=== PATIENT | male | born 1950 | race Caucasian/White ===

== ENCOUNTER → 2018-08-17 | Outpatient (CLI) | payer MEDICARE, OTHER ==
--- NOTE | 2018-08-21 10:08 | SLEEPCENT ---
DATE OF STUDY: 08/17/2018 ORDERED BY: LIZ Mooney Nocturnal polysomnography was performed for evaluation of sleep physiology in this patient with a history of snoring, comorbidities of hypertension and atrial fibrillation post ablation. 7 hours and 54 minutes of data were reviewed. They are 347 minutes of sleep identified. Sleep latency was prolonged at 58 minutes. REM latency was mildly prolonged at 104 minutes. Sleep architecture was fair with periods of wake resulting in reduced sleep efficiency of 74.1%. The patient's electrocardiogram showed a sinus rhythm with an average heart rate of 60 beats per minute. Premature atrial contractions were seen around obstructive respiratory events. The heart rate range was 50 to 90 beats per minute. EEG showed fairly normal waveforms for awake and sleep stages. There were 61 respiratory events identified of 10 seconds in duration or greater for an apnea-hypopnea index of 10.5. The events were primarily obstructive not exclusive to sleep stage nor body posture. Arousals from respiratory events occurred 4.7 times per hour, minimal oxygen desaturations were seen with significant activity noted in the limb leads with four trains of 30 events and a limb movement arousal index of 10. IMPRESSIONS: 1. Obstructive sleep apnea syndrome (G47.33). Apnea-hypopnea index 10.5. 2. Periodic limb movement disorder (G47.61). Limb movement arousal index 10. RECOMMENDATION: The patient should be encouraged to return to sleep disorder center for pressure therapy. In the interim, alcohol and sedative avoidance should be practiced and caution exercised during operation of motor vehicles. Pending response to pressure therapy interventions to reduce the frequency of arousal from limb activity may also be helpful. cc: Brigido Reddy MD
== END ==
LOC: M SLEEP 19:30
PROVIDERS: ATTEND Nurse Practitioner Family
DX: G47.33 Obstructive sleep apnea (adult) (pediatric) (principal); G47.61 Periodic limb movement disorder

== ENCOUNTER → 2018-09-18 | Outpatient (CLI) | payer MEDICARE, OTHER ==
--- NOTE | 2018-09-22 21:03 | SLEEPCENT ---
DATE OF PROCEDURE: 09/18/2018 ORDERED BY: Maisha Betancourt Nocturnal polysomnography was performed for the titration of pressure therapy in this patient with obstructive sleep apnea syndrome. Apnea-hypopnea index of 10.5. For testing, the patient was fit with a [employer] SoftEdge FX standard size mask. 4 cm of water pressure were applied to the circuit and the lights were extinguished. 7 hours and 58 minutes of data were reviewed. There were 343 minutes of sleep identified. Sleep latency was mildly prolonged at 27 minutes. Rapid eye movement (REM) latency likewise at 100 minutes. Sleep architecture remained somewhat fragmented in the midportion of the study. There were two REM cycles noted. Overall sleep efficiency was 72.7%. Electrocardiogram showed a sinus rhythm with an average heart rate of 60 beats minute. EEG showed normal waveforms for awake and sleep. Respiratory events were fully palliated with continuous positive airway pressure (CPAP) at a pressure of +6. Limb movements persisted during this test with the four trains of 30 events. Limb movement arousal index was 19.8. IMPRESSION: 1. Obstructive sleep apnea syndrome (G47.33). 2. Periodic limb movement disorder (G47.61). RECOMMENDATIONS: Nightly use of pressure therapy at 6 cm of water should be sufficient to address the patient's obstructive respiratory events. Should sleep symptoms persist, interventions to reduce the frequency of arousals from limb activity may be helpful.
== END ==
LOC: M SLEEP 19:33
PROVIDERS: ATTEND Nurse Practitioner Family
DX: G47.33 Obstructive sleep apnea (adult) (pediatric) (principal); G47.61 Periodic limb movement disorder

== ENCOUNTER → 2022-04-24 | Outpatient (CLI) | payer MEDICARE, OTHER ==
[~2022-04-24] MED LIST: ATOR1TAB21 PO; BIOFTAB PO; CALC600T61 PO; CHLO50TA PO; CVS500TA35 PO; D-3-50003 PO; ELIQ5TAB PO; FAMO40TA3 PO; POTA-136 PO; SOTA80TA32 PO
== END ==
LOC: M LABSMTC 10:50
PROVIDERS: ATTEND Anesthesiology
DX: Z01.812 Encounter for preprocedural laboratory examination (principal); Z11.52 Encounter for screening for COVID-19

== ENCOUNTER 2022-04-29 06:27 | Day surgery (SDC) | payer MEDICARE ==
[~2022-04-29] VITALS: Ht 170.2 cm; Wt 85.7 kg
[~2022-04-29 06:27] MED LIST changes: +NS 1,000 ML IV ONE
[2022-04-29] MEDS ORDERED: propofoL 500 MG/50 ML VIAL As Ordered ONE (07:41)
[2022-04-29] MEDS ORDERED: LIDOCAINE 2% 100MG/5ML SDV (FOR ANES.) As Ordered ONE (07:43)
[2022-04-29 08:40] VITALS: BP 124/63
== END 2022-04-29 08:41 | disposition home or self-care (01) ==
LOC: M OPP 06:27
PROVIDERS: ATTEND Internal Medicine Gastroenterology
DX: Z12.11 Encounter for screening for malignant neoplasm of colon (principal); K63.5 Polyp of colon; K64.8 Other hemorrhoids; I10 Essential (primary) hypertension; E78.5 Hyperlipidemia, unspecified; M19.90 Unspecified osteoarthritis, unspecified site; G47.30 Sleep apnea, unspecified; Z95.0 Presence of cardiac pacemaker; Z87.442 Personal history of urinary calculi; Z79.01 Long term (current) use of anticoagulants; Z79.899 Other long term (current) drug therapy